=== PATIENT | female | born 1975 | race Hispanic/Latino ===

== ENCOUNTER 2020-11-12 11:31 | Outpatient (CLI) | payer OTHER ==
[2020-11-12 22:31] LABS: SARS-CoV-2 PCR by NAA Not Detected (NotDetected)
== END 2020-11-12 11:32 | disposition home or self-care (01) ==
LOC: CSHLAB 11:31
PROVIDERS: ATTEND Internal Medicine Gastroenterology
DX: Z20.822 Contact with and (suspected) exposure to COVID-19 (principal); R10.9 Unspecified abdominal pain; R13.10 Dysphagia, unspecified
CPT/HCPCS: 87635; U0003; U0005

== ENCOUNTER 2020-11-17 11:41 | Day surgery (SDC) | payer OTHER ==
[2020-11-17] MEDS ORDERED: Lidocaine 1% MPF 2 ML VIAL ONE (12:00)
[2020-11-17] MEDS ORDERED: PROPOFOL 20 ML ONE ×2 (14:18)
== END 2020-11-17 15:25 | disposition home or self-care (01) ==
LOC: CSHSDC 11:41
PROVIDERS: ATTEND Internal Medicine Gastroenterology
PROC: 0D758ZZ Dilation of Esophagus, Via Natural or Artificial Opening Endoscopic (ICD-10-PCS; principal; 2020-11-17)
DX: R13.10 Dysphagia, unspecified (principal); R10.9 Unspecified abdominal pain; R10.13 Epigastric pain; E11.9 Type 2 diabetes mellitus without complications; E66.9 Obesity, unspecified; F41.9 Anxiety disorder, unspecified; M06.9 Rheumatoid arthritis, unspecified; F32.9 Major depressive disorder, single episode, unspecified; Z90.49 Acquired absence of other specified parts of digestive tract; Z90.710 Acquired absence of both cervix and uterus
CPT/HCPCS: 36416; 88305; J2704

== ENCOUNTER 2020-11-20 14:04 | Outpatient (CLI) | payer OTHER ==
[2020-11-21 01:52] LABS: SARS-CoV-2 PCR by NAA Not Detected (NotDetected)
== END 2020-11-20 14:05 | disposition home or self-care (01) ==
LOC: CSHLAB 14:04
PROVIDERS: ATTEND Internal Medicine Gastroenterology
DX: Z20.822 Contact with and (suspected) exposure to COVID-19 (principal); R10.9 Unspecified abdominal pain; R14.0 Abdominal distension (gaseous)
CPT/HCPCS: 87635; U0003; U0005

== ENCOUNTER 2020-11-24 10:28 | Outpatient (CLI) | payer OTHER | END 2020-11-24 10:29 | disposition home or self-care (01) | LOC: CSHNM 10:28 | PROVIDERS: ATTEND Internal Medicine Gastroenterology | DX: R10.9 Unspecified abdominal pain (principal); R14.0 Abdominal distension (gaseous); K30 Functional dyspepsia | CPT/HCPCS: 78264; A9541 ==

== ENCOUNTER 2020-11-24 10:36 | Outpatient (CLI) | payer OTHER | END 2020-11-24 10:37 | disposition home or self-care (01) | LOC: CSHRAD 10:36 | PROVIDERS: ATTEND Internal Medicine Rheumatology | DX: M50.30 Other cervical disc degeneration, unspecified cervical region (principal) | CPT/HCPCS: 72040 ==

== ENCOUNTER 2022-03-08 12:44 | Outpatient (CLI) | payer OTHER ==
[2022-03-08 14:11] LABS: Hemoglobin 13.3 g/dL (12.0-15.5); Mean Corpuscular HGB CONC 33.3 g/dL (32.0-36.0); Mean Corpuscular Hemoglobin 30.9 pg (27.0-33.0); Mean Platelet Volume 11.3 fl (7.4-10.4); Platelet Count 324 10x3/uL (150-450); RBC Distribution Width 12.7 % (11.5-14.5); White Blood Cell (WBC) Count 8.7 10x3/uL (3.5-10.5)
[2022-03-08 14:35] LABS: Anion Gap 12 mmol/L (10-20); BUN (Urea Nitrogen) 11 mg/dL (7.0-18.7); Calc. Creatinine Clearance 0 mL/min (70-130); Calcium 9.4 mg/dL (7.8-10.44); Carbon Dioxide 27 mmol/L (22-29); Chloride 104 mmol/L (98-107); Estimated GFR 108; Glucose 131 mg/dL (70-105); Potassium 4.2 mmol/L (3.5-5.1); Sodium 139 mmol/L (136-145)
[2022-03-08 20:04] LABS: Hemoglobin A1c 6.6 % (4.0-6.0)
== END 2022-03-08 12:45 | disposition home or self-care (01) ==
LOC: CSHLAB 12:44
PROVIDERS: ATTEND Orthopaedic Surgery
DX: Z01.818 Encounter for other preprocedural examination (principal); Z20.822 Contact with and (suspected) exposure to COVID-19
CPT/HCPCS: 80048; 82306; 83036; 85027; 87811; 93005; 93010